=== PATIENT | male | born 1975 ===

== ENCOUNTER → 2016-11-14 | Day surgery (SDC) | payer BC ==
[2016-11-14] VITALS (11 sets, daily range): BP systolic 105–126; BP diastolic 62–75
[~2016-11-14] VITALS: Ht 182.9 cm; Wt 95.3 kg
[~2016-11-14] MED LIST: Bupivacaine w/Epi 0.5% 30ml Vial INJ ONE; CRUTCH1 EACH MC; Dexamethasone 4mg/ml vial ONE; EPINEPHrine 1mg/1ml Amp ONE; Hydromorphone 0.5mg/0.5ml inj IVP PRN; Midazolam 2mg/2ml Inj ONE; NKM; NORCO 5-325 TA1 EACH ORAL; NS Irrig 2000ml IRRIG ONE; Propofol 10mg/ml 20ml IV ONE; Sterile Water Irrig 1000ml IRRIG ONE; fentaNYL 100 mcg/2 mL IV ONE
--- NOTE | 2016-11-14 07:34 | Anethesia Preoperative Eval ---
Anesthesia Pre-op PMH/ROS General Date of Evaluation: Nov 14, 2016 Time of Evaluation: 07:00 Anesthesiologist: DONITA ASA Score: ASA 1 Mallampati Score Class I : Soft palate, uvula, fauces, pillars visible Class II: Soft palate, uvula, fauces visible Class III: Soft palate, base of uvula visible Class IV: Only hard plate visible Mallampati Classification: Class II Surgeon: MOMO Diagnosis: MENISCAL TEAR R KNEE Surgical Procedure: ARTHROSCOPIC REPAIR KNEE Anesthesia History: none Family History: no anesthesia problems Allergies: Coded Allergies: No Known Allergies (Unverified , 11/13/16) Medications: see eMAR Past Medical History Cardiovascular: Denies: CAD, HTN, [place], arrhythmia, other, valve dz Pulmonary: Denies: COPD, ANAHI, asthma, other Gastrointestinal/Genitourinary: Denies: CRI, ESRD, GERD, other Neurologic/Psychiatric: Denies: CVA, TIA, dementia, depression/anxiety, other Endocrine: Denies: DM, hypothyroidism, other, steroids HEENT: Denies: [place] (L), [place] (R), cataract (L), cataract (R), glaucoma, other Hematology/Immune: Denies: DVT, anemia, bleeding disorder, other Musculoskeletal/Integumentary: Denies: DDD, DJD, OA, RA, edema, other Anesthesia Pre-op Phys. Exam Physician Exam Last Vital Signs Date Time Temp Pulse Resp B/P Pulse Ox O2 Delivery O2 Flow Rate FiO2 11/14/16 06:07 97.5 63 20 121/70 97 Room Air Constitutional: NAD Neurologic: CN 2-12 intact Cardiovascular: RRR Respiratory: CTA Gastrointestinal: S/NT/ND Airway Exam Mallampati Score: Class II MO: full ROM: full Teeth: intact Dentures: no lower, no upper Anesthesia Pre-op A/P Risk Assessment & Plan Assessment: ASA1 Plan: GA Status Change Before Surgery: No Pre-Antibiotics Drug: ANCEF Given Within 1 Hr of Incision: Yes Time Given: 07:20 RAVI DUCKWORTH M.D. Nov 14, 2016 07:34
--- NOTE | 2016-11-14 07:36 | Immediate Post-Op Evaluation ---
Immediate Post-Op Evalulation Immediate Post-Op Evalulation Procedure: ARTHROSCOPY KNEE Date of Evaluation: Nov 14, 2016 Time of Evaluation: 08:00 IV Fluids: 700 Blood Products: 0 Estimated Blood Loss: 0 Urinary Output: 0 Blood Pressure Systolic: 124 Blood Pressure Diastolic: 75 Pulse Rate: 68 Respiratory Rate: 17 O2 Sat by Pulse Oximetry: 100 Temperature (Fahrenheit): 97.2 Nausea: No Vomiting: No Complications 0 Patient Status: awake, patent, none Hydration Status: adequate Drug: ANCEF Given Within 1 Hr of Incision: Yes Time Given: 07:20 RAVI DUCKWORTH M.D. Nov 14, 2016 07:36
--- NOTE | 2016-11-14 07:37 | 48 Hour Post Anesthesia Eval ---
Post Anesthesia Evaluation Procedure: ARTHROSCOPY KNEE Date of Evaluation: Nov 14, 2016 Time of Evaluation: 12:00 Blood Pressure Systolic: 120 Pulse Rate: 66 Respiratory Rate: 15 Temperature (Fahrenheit): 98 O2 Sat by Pulse Oximetry: 99 Airway: patent Nausea: No Vomiting: No Pain Intensity: 1 Hydration Status: adequate Cardiopulmonary Status: WNL Post-Anesthesia Complications: 0 Follow-up care needed: ready to discharge RAVI DUCKWORTH M.D. Nov 14, 2016 07:37
--- NOTE | 2016-11-14 07:54 | Pre-Procedure Note/Attestation ---
Pre-Procedure Note/Attestation Complete Prior to Procedure Planned Procedure: right Procedure Narrative: knee scope partial medial menisectomy Indications for Procedure Pre-Operative Diagnosis: medial meniscus tear Attestation I attest that I discussed the nature of the procedure; its benefits; risks and complications; and alternatives (and the risks and benefits of such alternatives ), prior to the procedure, with the patient (or the patient's legal patient care representative). I attest that, if there was a reasonable possibility of needing a blood transfusion, the patient (or the patient's legal patient care representative) was given the [facility] standardized written summary, pursuant to the Rajendra Daniel Blood Safety Act ([place] Health and Safety Code # 1645, as amended). I attest that I re-evaluated the patient just prior to the surgery and that there has been no change in the patient's H&P, except as documented below: TERRI BARR Nov 14, 2016 07:54
--- NOTE | 2016-11-14 07:56 | Brief Operative Note ---
Immediate Post Operative Note Operative Note Pre-op Diagnosis: medial meniscus tear Post-op Diagnosis: same as pre-op Anesthesia: general Specimen: none Complications: none Condition: stable Estimated Blood Loss: none Drains: none Implant(s) used?: No TERRI BARR Nov 14, 2016 07:56
--- NOTE | 2016-11-18 23:28 | Operative Note - Dictated ---
DATE OF OPERATION: 11/14/2016 PREOPERATIVE DIAGNOSIS: Right knee medial meniscus tear. POSTOPERATIVE DIAGNOSIS: Right knee medial meniscus tear. INDICATION FOR OPERATION: The patient had status post trauma to the right knee with persistent complaints of pain. He has failed conservative measures. MRI shows a medial meniscus tear. SURGEON: Marcellus Francois M.D. FURNITURE DESIGNER: None. TOURNIQUET TIME: Zero. DESCRIPTION OF PROCEDURE IN DETAIL: The patient was brought into the operating room, identified as Juan Razo. After adequate anesthesia and a time-out, the patient was prepped and draped in the usual sterile fashion. Arthroscopic portals were established anterolaterally and anteromedially. The arthroscope was placed into the anterolateral portal under thorough inspection of the knee. A suprapatellar pouch and medial and lateral gutters were normal. The notch was normal. The arthroscope was gently swept into the medal compartment. Probe in the meniscus showed a medial meniscus complex posterior horn tear. Using a combination of baskets and gary, the meniscus was trimmed back to a stable rim. The back of the knee was massaged to the certain level of remaining fragments. There was no damage to the articular cartilage. The remainder of the meniscus was probe in its entirety superiorly and inferiorly and no additional tears were identified. Attention was directed to the notch. The anterior cruciate ligament was normal. The arthroscope was introduced into the anteromedial compartment and a thorough inspection carried out of the lateral compartment of the knee. The meniscus was probe in its entirety. No meniscal tears were identified. The chondral surfaces were normal. A thorough inspection was carried out once again of the gutters and the suprapatellar pouch and patellar femoral joint. No pathology was encountered. No bleeding was encountered. The knee was thoroughly irrigated with arthroscopic fluid, taken to a range of motion. Excessive arthroscopic fluid was drained from the knee. Marcaine was injected into the portals. The portals were closed using 4-0 Vicryl. A sterile dressing was applied. The patient was awakened in the operating room in satisfactory condition. Marcellus Overton M.D. DR: KIKI JOB#: [id number] CC: Marcellus Overton M.D.; [address] [place] [address]; [place] [address].; Fax#: [phone] [facility]
== END | disposition home or self-care (01) ==
LOC: SUR 05:36
DX: M23.221 Derangement of posterior horn of medial meniscus due to old tear or injury, right knee (principal); F17.210 Nicotine dependence, cigarettes, uncomplicated
CPT/HCPCS: 94003; 94150; J2250; J2405